=== PATIENT | female | born 1970 | race Caucasian/White ===

== ENCOUNTER 2016-05-14 08:49 | Day surgery (SDC) | payer OTHER ==
[~2016-05-14] VITALS: Ht 170.2 cm; Wt 63.5 kg
[2016-05-14] MEDS ORDERED: CEFAZOLIN SOD 1 GM in D5W 50 ML IV ONE (09:45)
[2016-05-14 10:04] VITALS: O2SAT 100
[2016-05-14] MEDS ORDERED: ceFAZolin SODIUM 1 GM VIAL ONE (14:00)
[2016-05-14] MEDS ORDERED: fentaNYL CITRATE/PF 100 MCG/2 ML AMP ONE (14:00)
[2016-05-14] MEDS ORDERED: ONDANSETRON HCL 4 MG/2 ML VIAL ONE (14:00)
[2016-05-14] MEDS ORDERED: PROPOFOL 200MG/ 20ML VIAL (DIPRIVAN) IV ONE (14:00)
[2016-05-14] MEDS ORDERED: NS IRRIG SOLN 1000 ML IR ONE (14:00)
[2016-05-14] MEDS ORDERED: MIDAZOLAM HCL 5 MG/5 ML VIAL ONE (14:00)
[2016-05-14] MEDS ORDERED: LR 1,000 ML IV.SOLN IV ONE (14:00)
[2016-05-14] MEDS ORDERED: SEVOFLURANE 15 MIN GAS INH ONE (14:00)
[2016-05-14] MEDS ORDERED: BUPIVACAINE /PF 0.5% 30 ML VIAL ONE (14:00)
[2016-05-14] MEDS ORDERED: LR 1,000 ML IV SCH (14:07)
[2016-05-14] MEDS ORDERED: MORPHINE 4 MG/ML INJ. SYRINGE IVP PRN ×3 (14:15)
[2016-05-14] MEDS ORDERED: METOCLOPRAMIDE HCL 10 MG/2 ML VIAL IVP PRN (14:15)
[2016-05-14] MEDS ORDERED: HYDROcodone/ACETAMIN 5-325 MG TAB (NORCO/ VICODIN) PO PRN ×2 (14:15)
[2016-05-14] MEDS ORDERED: HYDROmorphone 1 MG INJ. 1 MG/ML AMPUL IVP PRN (14:15)
[2016-05-14 15:16] VITALS: BP 128/85; PULSE 62; RESP 16
[2016-05-14] MEDS ORDERED: D5/0.45 NS 1,000 ML IV SCH (17:15)
== END 2016-05-14 15:45 | disposition home or self-care (01) ==
LOC: SDS 08:49 → SMU 08:49 → SDS 15:45
PROVIDERS: ATTEND Colon & Rectal Surgery
DX: N63 Unspecified lump in breast (principal); I10 Essential (primary) hypertension; E88.01 Alpha-1-antitrypsin deficiency; Z87.42 Personal history of other diseases of the female genital tract; Z86.018 Personal history of other benign neoplasm; Z80.42 Family history of malignant neoplasm of prostate; Z83.79 Family history of other diseases of the digestive system; Z82.49 Family history of ischemic heart disease and other diseases of the circulatory system
CPT/HCPCS: 19081; 76098; 88307; J0690; J2250; J2405; J2704; J3010; J3490; J7060; J7120